=== PATIENT | male | born 1950 | race Caucasian/White ===

== ENCOUNTER 2017-09-15 09:58 | Emergency (ER) | payer BC, OTHER ==
[~2017-09-15] VITALS: Ht 170.2 cm; Wt 74.8 kg
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
--- NOTE | 2017-09-15 10:32 | NUR ---
ORACIO, MODELING AGENT CALLED FOR CONSULT
--- NOTE | 2017-09-15 10:36 | NUR ---
EKG IN PROCESS
--- NOTE | 2017-09-15 10:39 | NUR ---
DIRECTOR SUPPLY AT BEDSIDE FOR BLOOD DRAW.
[2017-09-15 10:47] LABS: BASOPHILS # (AUTO) 0.5 /CMM (0.0-0.2); BASOPHILS % (AUTO) 4.8 % (0.0-2.0); EOSINOPHILS # (AUTO) 0.1 /CMM (0.0-0.7); EOSINOPHILS % (AUTO) 1.4 % (0.0-6.0); HEMATOCRIT 34 % (39-51); HEMOGLOBIN 11.9 g/dL (13.5-17.5); LYMPHOCYTES # (AUTO) 0.3 /CMM (0.8-4.8); LYMPHOCYTES % (AUTO) 3.6 % (20.0-44.0); MEAN CORPUSCULAR HEMOGLOBIN 30 PG (26.0-33.0); MEAN CORPUSCULAR HGB CONC 35 g/dl (31.0-36.0); MEAN CORPUSCULAR VOLUME 87 fL (80-96); MONOCYTES # (AUTO) 0.6 /CMM (0.1-1.30); MONOCYTES % (AUTO) 6.2 % (2.0-12.0); PLATELET COUNT (AUTO) 220 /CMM (150-450); RDW COEFFICIENT OF VARIATION 13.6 (11.5-15.0); RED BLOOD CELL COUNT(AUTO) 3.93 MIL/uL (4.5-6.0); WHITE BLOOD COUNT (AUTO) 9.5 K/uL (4.3-11.0)
[2017-09-15 11:05] LABS: INR 1.02 (0.87-1.13); PROTHROMBIN TIME 10.6 SECS (9.5-12.7)
[2017-09-15 11:10] LABS: TROPONIN I < 0.017 ng/mL (0.00-0.056)
[2017-09-15 11:51] LABS: CALCIUM, SERUM 8.4 mg/dL (8.5-10.1); CARBON DIOXIDE 27 mmol/L (21-32); CHLORIDE 107 mmol/L (98-107); CREATININE 1.1 mg/dL (0.6-1.3); GLUCOSE 196 mg/dL (74-106); POTASSIUM 3.7 mmol/L (3.5-5.1); SODIUM SERUM 143 mmol/L (136-145); UREA NITROGEN, BLOOD 17 mg/dL (7-18)
--- NOTE | 2017-09-15 12:37 | NUR ---
KELLY met pt. bedside to inquire about his living arrangements. Pt. is alert and oriented x 3. Pt. appeared disheveled. Pt. states he resides at [facility] located at [address] [place] [address] in [facility]. Pt. states he wants to be discharged back to his assisted living however is too weak to take a bus. Pt. 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 KELLY contacted nursing [employer] for taxi transportation. KELLY informed ER CRChang Lee regarding taxi to transport pt. to his assisted living. STEVE Franco was given the pt's address where he will be discharged to.
--- NOTE | 2017-09-15 13:30 | NUR ---
Patient discharged to home in stable condition. Written and verbal after care instructions given. Patient verbalizes understanding of instruction.
[2017-09-15 13:32] VITALS: BP 121/88
[2017-09-15 14:38] LABS: BAND % (MANUAL) 9 % (0.0-5.0); EOSINOPHILS % (MANUAL) 1 % (0-4); LYMPHOCYTES % (MANUAL) 1 % (16-48); MONOCYTES % (MANUAL) 7 % (0-11.0); NEUTROPHILS % (MANUAL) 82 (42-76)
== END 2017-09-15 13:34 | disposition home or self-care (01) ==
LOC: ER 10:00
DX: R07.9 Chest pain, unspecified (principal); R05 Cough; R50.9 Fever, unspecified; I10 Essential (primary) hypertension; E11.9 Type 2 diabetes mellitus without complications; Z88.0 Allergy status to penicillin
CPT/HCPCS: 36415; 71010; 80048; 84484; 85025; 85730; 93005; 99285; A4606; Z7610